=== PATIENT | female | born 1990 | race Caucasian/White ===

== ENCOUNTER 2016-11-29 15:19 | Inpatient (IN) ==
[2016-11-29] MEDS ORDERED: 0.9 % Sodium Chloride 1,000 ML IVC ONE (16:21)
[2016-11-29] MEDS ORDERED: Piperacillin/Tazobactam 3.375 GM in D5% in Water (Mini-Bag+) 100 ML IVPB ONE (16:22)
--- NOTE | 2016-11-29 16:33 | Emergency Department Note ---
Disposition Clinical Impression: Cellulitis Qualifiers: Site of cellulitis: extremity Site of cellulitis of extremity: lower extremity Laterality: unspecified laterality Qualified Code(s): L03.119 - Cellulitis of unspecified part of limb Anemia Qualifiers: Anemia type: unspecified type Qualified Code(s): D64.9 - Anemia, unspecified Disposition: Admitted As Inpatient Referrals: Magdalene Erickson MD [Primary Care Provider] - Forms: ED Satisfaction Letter Time of Disposition: 17:33 General Adult HPI - General Chief complaint: ED Extremity Problem,Nontraumatic Stated complaint: bilat LE infection-from Time Seen by Provider: 11/29/16 16:07 Source: patient Limitations: no limitations Nursing Notes Reviewed: Yes Vital Signs Reviewed: Yes - History of Present Illness HPI Narrative: 26-year-old female with significant past medical history Prader-Willi syndrome presenting to the emergency department after being transferred from urgent care for bilateral lower extremity cellulitis. Patient denies any fever, nausea, vomiting. Patient states no other pains at this time. Approximately 3 weeks ago patient wore shoes that were too tight for her ankles and got abrasion on her right lower extremity. This has had sloughing of skin and redness and irritation to the area. The left lower extremity has a large 12 x 10 cm draining foul-smelling open wound that has been present on and off for months according to the mother. Patient has a history of picking at her skin and this is the reasoning why this cellulitis has gotten significantly worse. Pain Scale: 10 - Related Data Home Medications Medication Instructions Recorded Confirmed No Known Home Drugs 11/29/16 11/29/16 Allergies Allergy/AdvReac Type Severity Reaction Status Date / Time No Known Allergies Allergy Verified 11/29/16 14:23 All systems ED: reviewed and negative except as stated. Constitutional: Denies: fever, chills, weakness Eyes: Reports: as per HPI ENT ED: Reports: as per HPI Cardiovascular: Denies: chest pain, palpitations Respiratory: Denies: cough, dyspnea, wheezes Gastrointestinal: Denies: abdominal pain, nausea, vomiting, diarrhea Genitourinary: Reports: as per HPI Musculoskeletal: Reports: as per HPI Integumentary: Reports: other (Cellulitis bilateral lower extremities) Neurological: Reports: as per HPI Psychiatric: Reports: as per HPI Endocrine: Reports: as per HPI Hematological/Lymphatic: Reports: as per HPI Allergic/Immunologic: Reports: as per HPI Past Medical History - Past Medical History Attestation: Yes The following information was validated with the patient. Medical history: Reports: other Psychiatric history: Reports: no psych history - Social History Smoking Status: Never smoker Smokeless Tobacco Status: No Alcohol use: Reports: none Drug use: Reports: none Physical Exam - General Limitations: no limitations General appearance: alert, in no apparent distress - Head Head exam: atraumatic, normocephalic, normal inspection - Chest Chest inspection: Present: normal inspection, symmetric chest wall rise. Absent : tenderness - Respiratory Respiratory exam: Present: normal lung sounds bilaterally. Absent: respiratory distress, wheezes, stridor - Cardiovascular Cardiovascular exam: Present: regular rate, normal rhythm, normal heart sounds - Abdominal Exam Abdominal exam: Present: soft, Non-Tender. Absent: distention, guarding, rebound - Extremities Exam Extremities exam: Present: full ROM - Neurological Exam Neurological exam: Present: alert, oriented X3 - Psychiatric Psychiatric exam: Present: normal affect, normal mood - Skin Skin exam: Present: other (Bilateral lower extremity cellulitis noted. The right lower extremity with redness and tenderness around the ankle but is not draining and no crepitus is noted. Left lower extremity has a 12 x 10 cm actively draining lesion with foul-smelling discharge coming from it. Severe tenderness and redness around the area. No crepitus noted.) Course Course Narrative: 26-year-old female presenting to the emergency department with chief complaint of bilateral lower extremity cellulitis. Due to the severe nature of the left lower extremity and possible need for debridement R disposition will be most likely admission. We will obtain basic lab work including blood cultures. We will begin treating with IV antibiotics and do a fluid bolus at this time. Patient stable in the room with stable vital signs at this time. Mother at bedside. - Reevaluation(s) Reevaluation #1: Lab work shows a white blood cell count of 13.4 and a lactic acid within normal limits at 1. The patient now currently meeting criteria for sepsis. Hemoglobin noted to be 7.1 on CBC. Patient has no other previous labs to compare this level with. Mother states she is not aware of any history of anemia. Patient has no active bleeding at this time. Patient alert and oriented in the room with stable vital signs at this time. Hospitalist Dr. Leyva accepts the patient. Time: 17:32 Vital Signs Temperature 98.1 F 11/29/16 15:20 Pulse Rate 99 11/29/16 15:20 Respiratory Rate 16 11/29/16 15:20 Blood Pressure 145/80 11/29/16 15:20 O2 Sat by Pulse Oximetry 98 11/29/16 15:20 Temperature 98.1 F 11/29/16 15:20 Pulse Rate 99 11/29/16 15:20 Respiratory Rate 16 11/29/16 15:20 Blood Pressure 145/80 11/29/16 15:20 O2 Sat by Pulse Oximetry 98 11/29/16 15:20 Oxygen Delivery Oxygen Delivery Room Air Medical Decision Making - Lab Data Result diagrams: 11/29/16 16:55 11/29/16 16:55 Lab Results 11/29/16 11/29/16 11/29/16 Range/Units 16:55 16:55 16:55 WBC 13.4 H (4.3-11.1) K/mcL RBC 4.27 (3.82-4.97) M/mcL Hgb 7.1 L (11.5-15.4) g/dL Hct 28.3 L (35.3-44.9) % MCV 66.3 L (83.0-100.0) fL MCH 16.6 L (28.0-33.3) pg MCHC 25.1 L (31.6-35.5) g/dL RDW 22.9 H (11.5-14.5) % Plt Count 376 (140-400) K/mcL MPV 9.8 (9.4-12.4) fL Nucleated RBCs/100 WBC 0.1 H (0) /100 WBC Sodium 140 (136-145) mEq/L Potassium 3.9 (3.5-4.5) mEq/L Chloride 106 (98-109) mEq/L Carbon Dioxide 25 (19-29) mEq/L BUN 14 (7-20) mg/dL Creatinine 0.65 (0.57-1.11) mg/dL Est GFR ( Amer) > 60 (> 60) Est GFR (Non-Af Amer) > 60 (> 60) BUN/Creatinine Ratio 22 (6-26) Glucose 102 H (70-99) mg/dL Calculated Osmolality 291 (280-300) Lactic Acid 1.1 (0.5-2.2) mmol/L Calcium 8.7 (8.6-10.8) mg/dL
[2016-11-29] MEDS ORDERED: Ampicillin/Sulbactam 3,000 MG in 0.9 % Sodium Chloride Mini Bag 100 ML IVPB ONE (16:44)
[2016-11-29] MEDS ORDERED: Vancomycin 2,000 MG in D5% in Water 500 ML IVPB ONE (17:00)
[2016-11-29 17:08] LABS: Basophils # 0.1 K/mcL (0.0-0.2); Basophils % 0.4 %; Eosinophils # 0.3 K/mcL (0.0-0.6); Eosinophils % 2.2 %; Hematocrit 28.3 % (35.3-44.9); Immature Granulocytes % 0.4 % (0-4); Lymphocytes % 14.8 %; Mean Corpuscular HGB Conc 25.1 g/dL (31.6-35.5); Mean Corpuscular Hemoglobin 16.6 pg (28.0-33.3); Mean Corpuscular Volume 66.3 fL (83.0-100.0); Mean Platelet Volume 9.8 fL (9.4-12.4); Monocytes % 7.6 %; Nucleated Red Blood Cells 0.1 /100 WBC (0); Platelet Count 376 K/mcL (140-400); Red Blood Count 4.27 M/mcL (3.82-4.97); Red Cell Distribution Width 22.9 % (11.5-14.5); Segmented Neutrophils % 74.6 %
[2016-11-29 17:15] LABS: BUN/Creatinine Ratio 22 (6-26); Blood Urea Nitrogen 14 mg/dL (7-20); Calcium 8.7 mg/dL (8.6-10.8); Carbon Dioxide 25 mEq/L (19-29); Chloride 106 mEq/L (98-109); Glucose 102 mg/dL (70-99); Osmolality,Calculated 291 (280-300); Potassium 3.9 mEq/L (3.5-4.5); Sodium 140 mEq/L (136-145); eGFR For African Americans > 60 (> 60); eGFR For Non-African Americans > 60 (> 60)
--- NOTE | 2016-11-29 17:16 | Emergency Department Note ---
START Narrative - START START: I examined this patient and my medical decision-making was reviewed with the Resident Physician. I agree with the documented findings, disposition and treatment plan as described except to the extent set forth below. Bilateral lower extremity wounds and ulcerations with surrounding erythema which could be related to an early cellulitis. The left lower extremity appears severely infected. I feel she would benefit from IV antibiotics and admission and a general surgery consult for wound debridement.
[2016-11-29 17:22] LABS: Hemoglobin 7.1 g/dL (11.5-15.4)
[2016-11-29 17:35] LABS: Anisocytosis 1+ (Not Present); Hypochromasia Present (Not Present); Microcytosis Present (Not Present); Platelet Estimate Normal (Normal)
[2016-11-29 17:36] LABS: Polychromasia 1+ (Not Present)
[2016-11-29] MEDS ORDERED: Naloxone 0.4 MG/ML INJ IVP PRN ×2 (18:11→18:17)
[2016-11-29] MEDS ORDERED: Ibuprofen 400 MG TABLET PO PRN (18:11)
--- NOTE | 2016-11-29 18:43 | Internal Med History&Physical ---
<Sidney Bauer - Last Filed: 11/29/16 19:54> Date of Encounter: 11/29/16 Time of Encounter: 18:40 Assessment and Plan (1) Cellulitis of both lower extremities Current visit: Yes Status: Chronic Chronic cellulitis of bilateral lower extremities. Patient mother at bedside and reports that she has a large left lower extremity wound that is increasing in size. The wound is open and has foul-smelling serous drainage. It appears the wound will require surgical debridement. The family is at bedside and actively talking with Dr. Ramos on the cell phone and they are informing me that she has agreed to see the patient for debridement. The patient meets SIRS criteria but she does not appear toxic. Blood cultures ordered and have been obtained; in the emergency department she was treated with ampicillin, Zosyn and vancomycin 2 g. I will treat patient with vancomycin; pharmacy to dose starting tomorrow, additionally I will add Zosyn every 8 hours. 0.9% normal saline at 125ml/hr Obtain EKG surgical clearance (2) Sepsis Current visit: Yes Status: Acute The patient has leukocytosis and tachycardia in the presence of bilateral lower extremity cellulitis left lower extremity wound, process such as not appear toxic. We will start sepsis protocol see plan above. Qualifiers: Qualified Code(s): A41.9 - Sepsis, unspecified organism (3) Diabetes Current visit: Yes Status: Acute History of type 2 diabetes. Not taking any medications at home or controlled. Continue to monitor blood glucose before meals and at bedtime Accu-Cheks. 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 Mother denies any prior history, also denies any obvious source of bleeding. No hematemesis, hematochezia or hematuria. No obvious bleeding noted. Type and screen CBC in the morning Qualifiers: Anemia type: unspecified type Qualified Code(s): D64.9 - Anemia, unspecified (5) DVT prophylaxis Current visit: Yes Status: Acute Heparin subcutaneous 5000u SC every 12 hours, morning dose as the patient is going to ER tomorrow for debridement of left lower extremity wound. Internal Medicine - H&P: HPI Chief complaint: Bilateral lower extremity cellulitis Admitted From: Home Plans for Post Hospital Care: Home History of present illness: Ms. Bella is a 26 year old female with a PMH of diabetes and Prader-Willi with mental developmental delay who presents to [facility] today with a greater than 3 month history of bilateral lower extremity cellulitis. The patients mother is at bedside and assists with history and physical. Patient's mother reports that she has had multiple lower extremity wounds and cellulitis off and on since she was 8 years old. She reports that the patient is constantly picking at her wound of the beginning to heal on examination the patient is noted to have a large 12 x 10 cm draining foul-smelling open wound to the left lower extremity. Right lower extremity has cellulitis is erythematous and tender. The patient has a mildly elevated white count of 13.4 and a pulse of 96 which meets SIRS criteria. Of Additional note the patient is also presenting with anemia, her mother denies any obvious source of bleeding also denying hematemesis, hematochezia and hematuria. She will likely need surgical debridement. The patient's family's request and Dr. Ramos to the surgical debridement, while in the room family members or in discussions with Dr. Ramos and per family she has agreed to see. Past Med Surg Social Fam HX - Past Medical History Medical history: other Psychiatric history: no psych history - Social History Smoking Status: Never smoker Smokeless Tobacco Status: No Alcohol use: none Drug use: none - Family History Mother Living Status: Still Living Hx Family Cancer: Yes Father Hx Family Endocrine Disorder: Yes (Diabetes) Grandmother Hx Family Cardiac Disorders: Yes (CAD) Internal Medicine - H&P: Meds No Known Home Drugs 11/29/16 [History] 3 Allergy/AdvReac Type Severity Reaction Status Date / Time No Known Allergies Allergy Verified 11/29/16 14:23 All Systems PM: A 10-system review of systems was performed and is negative for pertinent findings except as documented above in the HPI. - Constitutional Constitutional: fatigue, weakness, no chills, no fever(s), no night sweats - EENT Eyes: no change in vision, no discharge, no pain, no photophobia Ears: no ear discharge, no ear pain, no tinnitus Nose, mouth and throat: no dysphagia, no nasal discharge, no neck pain, no sore throat - Cardiovascular Cardiovascular ROS IM: no chest pain, no diaphoresis, no dyspnea, no lightheadedness, no palpitations, no syncope - Respiratory Respiratory: no cough, no dyspnea, no wheezing, no excessive phlegm production - Gastrointestinal Gastrointestinal: no abdominal pain, no diarrhea, no hematemesis, no hematochezia, no melena, no nausea, no vomiting - Genitourinary Genitourinary: no change in urinary stream, no dysuria, no flank pain, no hematuria - Musculoskeletal Musculoskeletal ROS IM: other, no numbness, no tingling Additional comments: Bilateral lower extremity cellulitis, left lower extremity has a large open wound - Integumentary Integumentary IM: no rash, no unusual bruising - Neurological Neurological ROS: no confusion, no convulsions, no focal weakness, no numbness, no tingling, no tremor(s) - Hematologic/Lymphatic Hematologic/Lymphatic: no easy bruising - Constitutional Vitals: Temp Pulse Resp BP Pulse Ox 98.1 F 99 16 145/80 98 11/29/16 15:20 11/29/16 15:20 11/29/16 15:20 11/29/16 15:20 11/29/16 15:20 General appearance: Present: cooperative, A&O X 3, no acute distress, answers questions appropriately - Head Head exam: Present: atraumatic, normocephalic - Eye Eye exam: Present: EOMI, PERRL, conjuntiva pink, sclera anicteric Pupils: Present: PERRL - Neck Neck exam general surgery: Present: supple, trachea midline. Absent: lymphadenopathy - Respiratory Respiratory exam: Present: CTAB. Absent: accessory muscle use, rales, rhonchi, wheezes - Cardiovascular Cardiovascular exam: Present: RRR, +S1, +S2. Absent: diastolic murmur, gallop, rubs, systolic murmur - GI/Abdominal GI/Abdominal exam: Present: normal bowel sounds, soft, no peritoneal signs. Absent: distended, tenderness - Extremities Exam Extremities exam: Present: calf tenderness, normal capillary refill, pedal edema , tenderness, warm. Absent: cyanotic, normal inspection, radial pulses palpable and symmetrical - Expanded Lower Extremities Exam Lower Leg exam: Present: erythema, swelling, tenderness Ankle exam: Present: swelling, tenderness (Bilateral lower extremity cellulitis , left lower extremity large 12 x 10 cm foul-smelling draining open wound) 1 - 12 x 10 cm open wound with foul-smelling drainage, erythema and edema tender to palpation 2 - Erythema and edema, tender to palpation - Neurological Exam Neurological exam: Present: alert, CN II-XII intact, oriented X3, no focal deficits. Absent: pronater drift, facial droop, speech deficit - Skin Skin exam: Present: dry, intact Internal Med - H&P Results - Labs CBC & Chem 7: 11/29/16 16:55 11/29/16 16:55 <Trey Yao - Last Filed: 11/29/16 23:32> Date of Encounter: 11/29/16 Time of Encounter: 21:00 - Constitutional Vitals: Temp Pulse Resp BP Pulse Ox 98.4 F 95 20 123/78 95 11/29/16 19:56 11/29/16 19:56 11/29/16 19:56 11/29/16 19:56 11/29/16 19:56 General appearance: Present: A&O X 3, no acute distress - Eye Eye exam: Present: PERRL. Absent: scleral icterus - Respiratory Respiratory exam: Present: CTAB. Absent: rales, rhonchi, wheezes - GI/Abdominal GI/Abdominal exam: Present: soft. Absent: tenderness - Extremities Exam Extremities exam: Present: normal capillary refill, warm Additional comments: bilateral cellulitis of LE with draining lesion on left leg as noted per Sidney Bauer CNP. - Neurological Exam Neurological exam: Present: alert, CN II-XII intact, oriented X3, no focal deficits - Psychiatric Psychiatric exam: Present: normal affect, normal mood - Skin Skin exam: Present: dry, warm Internal Med - H&P Results - Labs CBC & Chem 7: 11/29/16 16:55 11/29/16 16:55 - Attending Attestation I discussed the patient [facility] [place], PMH, ROS, lab data, and exam findings with Sidney Bauer CNP. I then saw and examined patient independently as well. Patient picks at her skin chronically and tends to develop recurrent cellulitis. She now has developed an extensive cellulitis of her LLE with draining wound. She may need surgical debridement as well. Regarding her anemia, she has no history of blood loss according to mother. She does not menstruate and never has. We will check iron studies and monitor hemoglobin levels. She will likely need PRBC transfusion. She will also need endoscopy in the near future, likely outpatient unless she develops acute bleed. Other than my comments above and noted exam findings, I agree with Sidney's assessment and plan.
[2016-11-29 20:51] LABS: % Iron Saturation 4 % (15-50); Iron 12 mcg/dL (50-170); Transferrin 244 mg/dL (180-382)
[2016-11-29] MEDS: *HR* Heparin 5,000 UNIT/ML VIAL SQ SCH (21:22)
[2016-11-29] MEDS: *HR* HYDROcodone/Acet 5/325 mg TABLET PO PRN (21:23)
[2016-11-30] MEDS: Piperacillin/Tazobactam 3.375 GM in D5% in Water (Mini-Bag+) 100 ML IVPB SCH ×4 (01:31→23:54)
[2016-11-30] MEDS: *HR* HYDROcodone/Acet 5/325 mg TABLET PO PRN (01:37)
[2016-11-30] MEDS: 0.9 % Sodium Chloride 1,000 ML IVC SCH ×2 (04:09→20:50)
[2016-11-30 05:05] LABS: Immature Granulocytes % 0.4 % (0-4); Red Blood Count 4.12 M/mcL (3.82-4.97)
[2016-11-30 05:06] LABS: Basophils % 0.4 %; Eosinophils # 0.3 K/mcL (0.0-0.6); Eosinophils % 2.8 %; Hematocrit 27.3 % (35.3-44.9); Hemoglobin 6.7 g/dL (11.5-15.4); Lymphocytes # 2.1 K/mcL (0.6-4.6); Lymphocytes % 20.8 %; Mean Corpuscular HGB Conc 24.5 g/dL (31.6-35.5); Mean Corpuscular Hemoglobin 16.3 pg (28.0-33.3); Mean Corpuscular Volume 66.3 fL (83.0-100.0); Monocytes # 0.8 K/mcL (0.0-1.3); Monocytes % 8.5 %; Neutrophils # 6.6 K/mcL (1.6-8.9); Platelet Count 367 K/mcL (140-400); Red Cell Distribution Width 22.7 % (11.5-14.5); Segmented Neutrophils % 67.1 %
[2016-11-30 05:20] LABS: Alanine Aminotransferase 7 Units/L (0-55); Albumin 2.7 g/dL (3.5-5.0); Albumin/Globulin Ratio 0.6 (1.1-2.2); Alkaline Phosphatase 59 Units/L (38-126); Aspartate Amino Transferase 10 Units/L (5-34); BUN/Creatinine Ratio 22 (6-26); Bilirubin,Total 0.3 mg/dL (0.2-1.2); Blood Urea Nitrogen 14 mg/dL (7-20); Calcium 8.4 mg/dL (8.6-10.8); Carbon Dioxide 27 mEq/L (19-29); Chloride 106 mEq/L (98-109); Globulin 4.4 g/dL (2.4-3.5); Glucose 124 mg/dL (70-99); Osmolality,Calculated 292 (280-300); Potassium 4.1 mEq/L (3.5-4.5); Sodium 140 mEq/L (136-145); Total Protein 7.1 g/dL (6.0-8.3); eGFR For African Americans > 60 (> 60); eGFR For Non-African Americans > 60 (> 60)
[2016-11-30 05:30] LABS: Anisocytosis 3+ (Not Present); Hypochromasia Present (Not Present); Microcytosis Present (Not Present); Platelet Estimate Normal (Normal); Polychromasia 1+ (Not Present)
[2016-11-30] MEDS: *HR* Heparin 5,000 UNIT/ML VIAL SQ SCH ×2 (06:06→18:45)
[2016-11-30] MEDS ORDERED: 0.9 % Sodium Chloride 250 ML ONE (07:40)
[2016-11-30] MEDS ORDERED: Sodium Ferric Gluconat/Sucrose 250 MG in 0.9 % Sodium Chloride 100 ML IVPB ONE (08:01)
[2016-11-30] MEDS ORDERED: Vancomycin 2,000 MG in D5% in Water 500 ML IVPB SCH (11:00)
--- NOTE | 2016-11-30 13:16 | Internal Med Progress Note ---
Date of Encounter: 11/30/16 Time of Encounter: 09:40 - Assessment and plan (1) Cellulitis Current Visit: Yes Status: Acute Assessment and plan: Patient with bilateral cellulitis open wound on left leg. Surgery consulted. Continue current antibiotics. Clinically patient is getting better. Moderate risk for complications. Qualifiers: Site of cellulitis: extremity Site of cellulitis of extremity: lower extremity Laterality: left Qualified Code(s): L03.116 - Cellulitis of left lower limb (2) Anemia Current Visit: Yes Status: Acute Assessment and plan: Hemoglobin 6.7 today. Discussed with patient and her brother. Patient does have a very restricted diet. Most likely has dietary iron deficiency. Will transfuse 1 unit packed red blood cells. Also give IV iron. Follow blood counts. We will also check stool for occult blood. Qualifiers: Anemia type: iron deficiency Iron deficiency anemia type: inadequate dietary iron intake Qualified Code(s): D50.8 - Other iron deficiency anemias (3) Sepsis Current Visit: Yes Status: Acute Assessment and plan: Improving. Lactate normal. Heart rate normal. No new episodes of fever. Cultures negative so far. Qualifiers: Sepsis type: sepsis due to unspecified organism Qualified Code(s): A41.9 - Sepsis, unspecified organism (4) Diabetes Current Visit: Yes Status: Chronic Assessment and plan: Controlled. Continue to monitor blood sugars. Will place on low correctional insulin coverage. 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 Lying in bed. Comfortable. No new complaints at this time. No fever or chills reported. - Constitutional Vitals: Temp Pulse Resp BP Pulse Ox 98.4 F 77 18 98/61 99 11/30/16 11:13 11/30/16 11:13 11/30/16 11:13 11/30/16 11:13 11/30/16 11:13 General appearance: Present: A&O X 3, morbidly obese, no acute distress, answers questions appropriately - Neck Neck exam general surgery: Present: supple, trachea midline. Absent: lymphadenopathy - Respiratory Respiratory exam: Present: CTAB. Absent: accessory muscle use, rales, rhonchi, wheezes - Cardiovascular Cardiovascular exam: Present: RRR, +S1, +S2. Absent: diastolic murmur, gallop, rubs, systolic murmur - GI/Abdominal GI/Abdominal exam: Present: normal bowel sounds, soft, no peritoneal signs. Absent: distended, tenderness - Extremities Exam Extremities exam: Present: pedal edema, warm, radial pulses palpable and symmetrical. Absent: calf tenderness, cyanotic Additional comments: Erythema involving both lower extremities. Currently bandaged. Open wound on left leg remains stable. - Neurological Exam Neurological exam: Present: alert, oriented X3, no focal deficits. Absent: facial droop, speech deficit Internal Medicine: Result - Labs CBC & Chem 7: 11/30/16 04:23 11/30/16 04:23 Labs: Short CBC 11/30/16 Range/Units 04:23 WBC 9.9 (4.3-11.1) K/mcL Hgb 6.7 L (11.5-15.4) g/dL Hct 27.3 L (35.3-44.9) % Plt Count 367 (140-400) K/mcL Neutrophils # 6.6 (1.6-8.9) K/mcL BMP 11/30/16 04:23 Sodium 140 Potassium 4.1 Chloride 106 Carbon Dioxide 27 BUN 14 Creatinine 0.63 Glucose 124 H Calcium 8.4 L Liver Function 11/30/16 Range/Units 04:23 Total Bilirubin 0.3 (0.2-1.2) mg/dL AST 10 (5-34) Units/L ALT 7 (0-55) Units/L Alkaline Phosphatase 59 (38-126) Units/L Albumin 2.7 L (3.5-5.0) g/dL Consult Discharge Plan - Plan Referrals: Magdalene Erickson MD [Primary Care Provider] -
--- NOTE | 2016-11-30 13:22 | Electrocardiograph Report ---
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
[2016-11-30] MEDS ORDERED: Dextrose Gel 15 GM PO PRN ×2 (13:25)
[2016-11-30] MEDS ORDERED: *HR* Dextrose 50 % in Water (Syg) 50 ML SYRINGE IVP PRN (13:25)
[2016-11-30] MEDS ORDERED: D5% in Water 1,000 ML IVC PRN (13:25)
--- NOTE | 2016-11-30 14:55 | General Surgery Consult Note ---
<Coretta Montero Anoop - Last Filed: 11/30/16 15:49> Date of Encounter: 11/30/16 Time of Encounter: 14:15 Assessment and Plan (1) Venous stasis ulcers of both lower extremities Current Visit: Yes Status: Chronic Local debridement of LLE- see procedure note Cultures of LLE wound Wound care- cleanse with soap and water, apply gauze moistened with 1/4 strength Dakin's solution, cover with ABD pad, wrap with kerlex and then wrap with mauricio wrap. Complete dressing changes daily IV antibiotics- Zosyn and Vancomycin Supportive care Will need outpatient follow-up in wound care in 1 week- will need placement of unna boots bilateral when wounds cleaned up Will continue to follow and assess progress (2) Anemia Current Visit: Yes Status: Acute Discussed with patient and family and they would like to consider EGD/ Colonoscopy on an outpatient basis PRBC tranfused today per medicine team- 1 unit Monitor Hgb/Hct per medicine recommendations Qualifiers: Anemia type: iron deficiency Iron deficiency anemia type: inadequate dietary iron intake Qualified Code(s): D50.8 - Other iron deficiency anemias (3) Cellulitis Current Visit: Yes Status: Chronic IV antibiotics- Zosyn and Vancomycin Qualifiers: Site of cellulitis: extremity Site of cellulitis of extremity: lower extremity Laterality: left Qualified Code(s): L03.116 - Cellulitis of left lower limb (4) Prader-Willi syndrome Current Visit: Yes Status: Chronic (5) Morbid obesity with BMI of 50.0-59.9, adult Current Visit: Yes Status: Chronic (6) Diabetes Current Visit: Yes Status: Chronic Blood glucose controlled Diabetic diet Management per medicine service Qualifiers: Diabetes mellitus type: type 2 Diabetes mellitus complication status: without complication Diabetes mellitus computer terminal operator insulin use: without fpc use Qualified Code(s): E11.9 - Type 2 diabetes mellitus without complications History of Present Illness Consult date: 11/30/16 Reason for consult: other (Bilateral lower extremity wounds and cellulitis; anemia) Requesting physician: Katia Polanco History of present illness: Ms. Bella is a very pleasant 26 year old female with a past medical history significant for Prader Willi Syndrome. She reported to the ED yesterday with complaints of chronic wounds to bilateral lower extremities for the past 3 months. Her mother provides much of the history and medical record has been reviewed. The patient has had multiple wounds/cellulitis to bilateral lower extremities since the age of 89 year old. She has a large wound to her left lower extremity which has been increasing in size. There is foul smelling green drainage noted from the wound. The patient denies any pain associated with her lower extremities at this time. Denies any fevers/chills. She did have an elevated WBC count at 13.4 on admission and has now normalized on day #1. The patient's mother has been caring for her wounds at home. Applying ointment and dry dressing daily. She is not being seen in a wound care center currently. The patient also presents with anemia with a Hgb of 6.7 today. Denies any melena or hematochezia. Denies any nausea/vomiting (hematemesis of coffee ground emesis). Denies any abdominal pain. Denies any unexplained weight loss. Denies any changes in bowel habits. Denies any dizziness or syncopal episodes. Denies any shortness of breath or chest pains. We have been asked to see and evaluate the patient for recommendations. Past Med Surg Social Fam HX - Past Medical History Source: patient, obtained from family Medical history: other (Prader Willi Syndrome, Chronic venous stasis ulcer of lower extremities with cellulitis, obesity) Psychiatric history: no psych history - Past Surgical History Surgical History: appendectomy, other (Partial cecectomy; Tonsillectomy with adenoidectomy; eye surgery as an infant) - Social History Smoking Status: Never smoker Smokeless Tobacco Status: No Alcohol use: none Drug use: none Occupational status: disabled Current living situation: Home - Independent, With Family - Family History Mother Living Status: Still Living Hx Family Cancer: Yes (cervical cancer) Father Hx Family Endocrine Disorder: Yes (Diabetes) Grandmother Hx Family Cardiac Disorders: Yes (CAD) Hx Family Cancer: Yes (MGM- uterine cancer and breast cancer) Medications and Allergies No Known Home Drugs 11/29/16 [History] 3 Allergy/AdvReac Type Severity Reaction Status Date / Time No Known Allergies Allergy Verified 11/29/16 14:23 Review of Systems All systems PM: reviewed and no additional remarkable complaints except as stated (in the HPI) All systems PM: A 10-system review of systems was performed and is negative for pertinent findings except as documented above in the HPI. General Surgery Exam Initial Vital Signs Temp Pulse Resp BP Pulse Ox 98.1 F 99 16 145/80 98 11/29/16 15:20 11/29/16 15:20 11/29/16 15:20 11/29/16 15:20 11/29/16 15:20 - General physical appearance well developed, well nourished, no distress, no pain, obese - Eyes normal ocular movement - ENT normal mucosa, atraumatic, normocephalic - Neck trachea midline - Respiratory normal respiratory effort, clear to auscultation - Cardiovascular Cardiovascular exam: Present: RRR - Abdomen Abdomen general surgery: Present: bowel sounds present, soft, non tender - Integumentary Integumentary general surgery: Present: warm and dry, other (LLE wound- measures (10 X 24 X 0.3cm) with 70% granulation tissue, 30% fibrin; mild surrounding erytherma without induration; small amount of green drainage noted with odor; no tunnelling or undermining noted; RLE wound measures (6 X 6 X 0.2cm ); 100% granulation tissue noted; small amount of serous drainage noted without odor; mild surrounding erythema without induration noted; no tunnelling or undermining noted) - Neurologic Present: CN 2-12 grossly intact - Psychiatric Psychiatric general surgery: Present: A&Ox3 Exam Initial Vital Signs Temp Pulse Resp BP Pulse Ox 98.1 F 99 16 145/80 98 11/29/16 15:20 11/29/16 15:20 11/29/16 15:20 11/29/16 15:20 11/29/16 15:20 Results - Labs 11/30/16 04:23 11/30/16 04:23 Abnormal lab results Hgb 6.7 g/dL (11.5-15.4) L 11/30/16 04:23 Hct 27.3 % (35.3-44.9) L 11/30/16 04:23 MCV 66.3 fL (83.0-100.0) L 11/30/16 04:23 MCH 16.3 pg (28.0-33.3) L 11/30/16 04:23 MCHC 24.5 g/dL (31.6-35.5) L 11/30/16 04:23 RDW 22.7 % (11.5-14.5) H 11/30/16 04:23 Nucleated RBCs/100 WBC 0.1 /100 WBC (0) H 11/29/16 16:55 Polychromasia 1+ (Not Present) A 11/30/16 04:23 Hypochromasia Present (Not Present) A 11/30/16 04:23 Anisocytosis 3+ (Not Present) A 11/30/16 04:23 Microcytosis Present (Not Present) A 11/30/16 04:23 Glucose 124 mg/dL (70-99) H 11/30/16 04:23 POC Glucose 130 (58-89) H 11/30/16 11:29 Calcium 8.4 mg/dL (8.6-10.8) L 11/30/16 04:23 Iron 12 mcg/dL (50-170) L 11/29/16 16:55 % Saturation 4 % (15-50) L 11/29/16 16:55 Albumin 2.7 g/dL (3.5-5.0) L 11/30/16 04:23 Globulin 4.4 g/dL (2.4-3.5) H 11/30/16 04:23 Albumin/Globulin Ratio 0.6 (1.1-2.2) L 11/30/16 04:23 Diabetes panel 11/30/16 Range/Units 04:23 Sodium 140 (136-145) mEq/L Potassium 4.1 (3.5-4.5) mEq/L Chloride 106 (98-109) mEq/L Carbon Dioxide 27 (19-29) mEq/L BUN 14 (7-20) mg/dL Creatinine 0.63 (0.57-1.11) mg/dL Glucose 124 H (70-99) mg/dL Calcium 8.4 L (8.6-10.8) mg/dL AST 10 (5-34) Units/L ALT 7 (0-55) Units/L Alkaline Phosphatase 59 (38-126) Units/L Albumin 2.7 L (3.5-5.0) g/dL Calcium panel 11/30/16 Range/Units 04:23 Calcium 8.4 L (8.6-10.8) mg/dL Albumin 2.7 L (3.5-5.0) g/dL Pituitary panel 11/30/16 Range/Units 04:23 Sodium 140 (136-145) mEq/L Potassium 4.1 (3.5-4.5) mEq/L Chloride 106 (98-109) mEq/L Carbon Dioxide 27 (19-29) mEq/L BUN 14 (7-20) mg/dL Creatinine 0.63 (0.57-1.11) mg/dL Glucose 124 H (70-99) mg/dL Calcium 8.4 L (8.6-10.8) mg/dL Adrenal panel 11/30/16 Range/Units 04:23 Sodium 140 (136-145) mEq/L Potassium 4.1 (3.5-4.5) mEq/L Chloride 106 (98-109) mEq/L Carbon Dioxide 27 (19-29) mEq/L BUN 14 (7-20) mg/dL Creatinine 0.63 (0.57-1.11) mg/dL Glucose 124 H (70-99) mg/dL Calcium 8.4 L (8.6-10.8) mg/dL Total Bilirubin 0.3 (0.2-1.2) mg/dL AST 10 (5-34) Units/L ALT 7 (0-55) Units/L Alkaline Phosphatase 59 (38-126) Units/L Albumin 2.7 L (3.5-5.0) g/dL All other labs normal. Consult Discharge Plan - Plan Referrals: Magdalene Erickson MD [Primary Care Provider] - - Attending Attestation For this encounter, I have reviewed the FURNACE COOLER or PA documentation, treatment plan, and medical decision making; and I have had face to face time with this patient. <Jennifer Ramos - Last Filed: 12/01/16 12:36> Date of Encounter: 11/30/16 Assessment and Plan (1) Anemia Current Visit: Yes Status: Acute will plan bowel prep tomorrow and EGD/colonscopy on wed Qualifiers: Anemia type: unspecified type Qualified Code(s): D64.9 - Anemia, unspecified (2) DVT prophylaxis Current Visit: Yes Status: Acute (3) Cellulitis Current Visit: Yes Status: Chronic continue Abx Qualifiers: Site of cellulitis: extremity Site of cellulitis of extremity: lower extremity Laterality: left Qualified Code(s): L03.116 - Cellulitis of left lower limb (4) Morbid obesity with BMI of 50.0-59.9, adult Current Visit: Yes Status: Chronic (5) Prader-Willi syndrome Current Visit: Yes Status: Chronic ok for regular diet tonight, start clears in am (6) Venous stasis ulcers of both lower extremities Current Visit: Yes Status: Chronic agree with Kiara Montero assessment and plan History of Present Illness History of present illness: Patient is 26 yo morbidly obese female with Prader-willi syndrome, MR who has had bilateral lower leg wounds on and off since she was 8 yrs old. She has sensitive skin per her mother and even the act of itching/scratching her legs will cause and open sore. She has had many treatments over the years from Unna boots, lymphedema sleeves, various medicated dressings and kerlix and coban when no open wounds present. She has had a left leg open wound for some times now. There is green foul smelling drainage. She was admitted with cellulitis and elevated wbc and started on Abx. Her Hb was found to be 7.1 on admission. Patient denies any obvious dark/black stools or blood in stool. States she sometimes has epigastric pain &/or reflux. Mother states this is the first time she has heard about this as patient has never previously complained. Past Med Surg Social Fam HX - Past Medical History Medical history: other (Prader Willi Syndrome, Chronic venous stasis ulcer of lower extremities with cellulitis, obesity, MR) Review of Systems All systems PM: reviewed and no additional remarkable complaints except as stated All systems PM: A 10-system review of systems was performed and is negative for pertinent findings except as documented above in the HPI. General Surgery Exam Initial Vital Signs Temp Pulse Resp BP Pulse Ox 98.1 F 99 16 145/80 98 11/29/16 15:20 11/29/16 15:20 11/29/16 15:20 11/29/16 15:20 11/29/16 15:20 - General physical appearance well developed, well nourished, no distress, obese - Eyes PERRL, normal ocular movement - ENT normal mucosa, atraumatic - Neck trachea midline - Respiratory normal expansion, normal respiratory effort - Abdomen Abdomen general surgery: Present: bowel sounds present, soft, non tender - Neurologic Present: CN 2-12 grossly intact - Musculoskeletal Present: normal posture - Psychiatric Psychiatric general surgery: Present: A&Ox3 Exam Initial Vital Signs Temp Pulse Resp BP Pulse Ox 98.1 F 99 16 145/80 98 11/29/16 15:20 11/29/16 15:20 11/29/16 15:20 11/29/16 15:20 11/29/16 15:20 Results - Labs 11/30/16 16:15 11/30/16 04:23 Abnormal lab results Hgb 6.7 g/dL (11.5-15.4) L 11/30/16 16:15 Hct 27.5 % (35.3-44.9) L 11/30/16 16:15 MCV 66.3 fL (83.0-100.0) L 11/30/16 04:23 MCH 16.3 pg (28.0-33.3) L 11/30/16 04:23 MCHC 24.5 g/dL (31.6-35.5) L 11/30/16 04:23 RDW 22.7 % (11.5-14.5) H 11/30/16 04:23 Nucleated RBCs/100 WBC 0.1 /100 WBC (0) H 11/29/16 16:55 Polychromasia 1+ (Not Present) A 11/30/16 04:23 Hypochromasia Present (Not Present) A 11/30/16 04:23 Anisocytosis 3+ (Not Present) A 11/30/16 04:23 Microcytosis Present (Not Present) A 11/30/16 04:23 Glucose 124 mg/dL (70-99) H 11/30/16 04:23 POC Glucose 138 (58-89) H 11/30/16 23:58 Calcium 8.4 mg/dL (8.6-10.8) L 11/30/16 04:23 Iron 12 mcg/dL (50-170) L 11/29/16 16:55 % Saturation 4 % (15-50) L 11/29/16 16:55 Albumin 2.7 g/dL (3.5-5.0) L 11/30/16 04:23 Globulin 4.4 g/dL (2.4-3.5) H 11/30/16 04:23 Albumin/Globulin Ratio 0.6 (1.1-2.2) L 11/30/16 04:23 All other labs normal. - Attending Attestation I have personally performed a face to face evaluation on this patient. I have reviewed and agree with the care plan. History and Exam by me shows:
--- NOTE | 2016-11-30 15:57 | General Surgery Procedure Note ---
Date of procedure: 11/30/16 Pre-op diagnosis: Infected venous stasis ulcer of LLE Post-op diagnosis: same Procedure: After informed consent was obtained and timeout performed, the patient's left lower extremity was localized with the use of 2% topical lidocaine. After achieving appropriate localization, a curet was used to debride the entire wound. Cultures were obtained for Gram stain, aerobic culture, anaerobic culture. The wound was cleansed with 40 mL of sterile saline and patted dry. The wound was debrided through skin and subcutaneous tissue. The patient tolerated this well and there were no immediate complications noted. Complications: none Anesthesia: local (2% topical lidocaine) Surgeon: Coretta Montero Creative Manager: Liliana Bay Estimated blood loss (cc): 0 Pathology: other (gram stain, aerobic culture, anerobic culture) Condition: stable Disposition: no change
[2016-11-30 17:12] LABS: Hematocrit 27.5 % (35.3-44.9); Hemoglobin 6.7 g/dL (11.5-15.4)
[2016-11-30] MEDS ORDERED: Aminoglycoside Consult 1 EACH MC ONE (18:38)
[2016-11-30] MEDS: Insulin LISPRO 300 UNITS/3 ML VIAL SQ SCH ×2 (18:45→23:59)
[2016-12-01] MEDS ORDERED: Vancomycin 2,000 MG in D5% in Water 500 ML IVPB SCH (01:00)
[2016-12-01] MEDS: 0.9 % Sodium Chloride 1,000 ML IVC SCH ×2 (05:39→13:32)
[2016-12-01] MEDS: *HR* Heparin 5,000 UNIT/ML VIAL SQ SCH ×2 (05:40→17:48)
[2016-12-01] MEDS: Insulin LISPRO 300 UNITS/3 ML VIAL SQ SCH ×3 (05:40→16:34)
[2016-12-01] MEDS: Piperacillin/Tazobactam 3.375 GM in D5% in Water (Mini-Bag+) 100 ML IVPB SCH ×2 (07:55→16:36)
[2016-12-01] MEDS ORDERED: Polyethylene Glycol 3350 255 GM POWDER PO ONE (08:22)
--- NOTE | 2016-12-01 13:02 | Internal Med Progress Note ---
Date of Encounter: 12/01/16 Time of Encounter: 09:00 - Assessment and plan (1) Cellulitis Current Visit: Yes Status: Chronic Assessment and plan: Patient with bilateral cellulitis open wound on left leg. Surgery consulted. Pt had debridement done. Continue antibiotic. Wound culture shows Pseudomonas , blood culture negative 2. Will DC Vanco continue Zosyn. Which for final culture result. Qualifiers: Site of cellulitis: extremity Site of cellulitis of extremity: lower extremity Laterality: left Qualified Code(s): L03.116 - Cellulitis of left lower limb (2) Anemia Current Visit: Yes Status: Acute Assessment and plan: Hemoglobin 6.7 today. Discussed with patient and her brother. Patient does have a very restricted diet. Most likely has dietary iron deficiency. Will transfuse 1 unit packed red blood cells. Also give IV iron. Follow blood counts. We will also check stool for occult blood. Surgical consult on case and discussed with patient regarding EGD/colonoscopy, plan for all the scopes as outpatient. Qualifiers: Anemia type: iron deficiency Qualified Code(s): D50.0 - Iron deficiency anemia secondary to blood loss (chronic) (3) Sepsis Current Visit: Yes Status: Acute Assessment and plan: Resolved. Lactate normal. Heart rate normal. No new episodes of fever. WBC Down to normal. Qualifiers: Sepsis type: sepsis due to unspecified organism Qualified Code(s): A41.9 - Sepsis, unspecified organism (4) Diabetes Current Visit: Yes Status: Chronic Assessment and plan: Controlled. Continue to monitor blood sugars. Will place on low correctional insulin coverage. Qualifiers: Diabetes mellitus type: type 2 Diabetes mellitus complication status: without complication Diabetes mellitus ad terminal makeup operator insulin use: without ad terminal makeup operator use Qualified Code(s): E11.9 - Type 2 diabetes mellitus without complications (5) DVT prophylaxis Current Visit: Yes Status: Acute Assessment and plan: With subcutaneous heparin (6) Venous stasis ulcers of both lower extremities Current Visit: Yes Status: Chronic Assessment and plan: Continue antibiotic. Continue wound care as outpatient. Debridement done by surgery. Continue closely monitor patient. (7) Prader-Willi syndrome Current Visit: Yes Status: Chronic (8) Morbid obesity with BMI of 50.0-59.9, adult Current Visit: Yes Status: Chronic - Subjective Interval history: Patient is a 26-year-old female admitted for bilateral lower extremity cellulitis. Past medical history is significant for diabetes, anemia, Prader- Willi syndrome. I saw and examined the patient today. Patient cannot answer questions properly. Vital signs stable. Wound culture result shows Pseudomonas. Will continue Zosyn, discontinue vancomycin. Patient still have low hemoglobin, will give another unit of PRBC transfusion. WBC trended down. Surgical consult and debridement appreciated. - Constitutional Vitals: Temp Pulse Resp BP Pulse Ox 98.2 F 73 15 103/67 95 12/01/16 10:40 12/01/16 10:40 12/01/16 10:40 12/01/16 10:40 12/01/16 10:40 General appearance: Present: A&O X 3, morbidly obese, no acute distress, answers questions appropriately - Head Head exam: Present: atraumatic, normocephalic - Eye Eye exam: Present: PERRL, conjuntiva pink, sclera anicteric Pupils: Present: PERRL - Neck Neck exam general surgery: Present: supple, trachea midline. Absent: lymphadenopathy - Respiratory Respiratory exam: Present: CTAB. Absent: accessory muscle use, rales, rhonchi, wheezes - Cardiovascular Cardiovascular exam: Present: RRR, +S1, +S2. Absent: diastolic murmur, gallop, rubs, systolic murmur - GI/Abdominal GI/Abdominal exam: Present: normal bowel sounds, soft, no peritoneal signs. Absent: distended, tenderness - Extremities Exam Extremities exam: Present: warm, radial pulses palpable and symmetrical. Absent : calf tenderness, cyanotic, pedal edema Additional comments: Bilateral lower extremity wound - Neurological Exam Neurological exam: Present: CN II-XII intact, oriented X3, no focal deficits. Absent: pronater drift, facial droop, speech deficit - Skin Skin exam: Present: dry, intact Internal Medicine: Result - Labs CBC & Chem 7: 11/30/16 16:15 11/30/16 04:23 Labs: Short CBC 11/30/16 Range/Units 16:15 Hgb 6.7 L (11.5-15.4) g/dL Hct 27.5 L (35.3-44.9) % Consult Discharge Plan - Plan Referrals: Magdalene Erickson MD [Primary Care Provider] -
[2016-12-01 13:37] LABS: Basophils % 0.3 %; Hemoglobin 6.4 g/dL (11.5-15.4); Monocytes % 7.9 %
[2016-12-01 13:38] LABS: Eosinophils # 0.4 K/mcL (0.0-0.6); Eosinophils % 4.3 %; Hematocrit 25.7 % (35.3-44.9); Immature Granulocytes % 0.3 % (0-4); Lymphocytes # 1.8 K/mcL (0.6-4.6); Lymphocytes % 20.2 %; Mean Corpuscular HGB Conc 24.9 g/dL (31.6-35.5); Mean Corpuscular Hemoglobin 16.5 pg (28.0-33.3); Mean Corpuscular Volume 66.4 fL (83.0-100.0); Mean Platelet Volume 9.9 fL (9.4-12.4); Monocytes # 0.7 K/mcL (0.0-1.3); Platelet Count 313 K/mcL (140-400); Red Blood Count 3.87 M/mcL (3.82-4.97); Red Cell Distribution Width 22.8 % (11.5-14.5)
[2016-12-01 13:41] LABS: Hypochromasia Present (Not Present); Microcytosis Present (Not Present); Platelet Estimate Normal (Normal)
[2016-12-01] MEDS ORDERED: 0.9 % Sodium Chloride 250 ML ONE (13:59)
--- NOTE | 2016-12-01 19:19 | Anesthesia Evaluation PreOp ---
Date of Encounter: 12/01/16 Time of Encounter: 19:18 - Past History Planned Operation: EGD/ Colonoscopy Cardiac History: Denies any Significant Hx Pulmonary History: Denies Any Significant HX LABOR DELIVERY SPECIALIST History: Denies Any Significant HX Other Medical History: Diabetes Type II, Other (Pradder-Willi Syndrome, Morbid Obesity - BMI 56.2, Cellulitis Bilateral lower extremities) Anesthesia History: Past Anesthesia (appendectomy,Partial cecectomy, T&A, eye surgery as an infant) Alcohol Use: none Drug use: none Medications and Allergies No Known Home Drugs 11/29/16 [History] 3 Allergy/AdvReac Type Severity Reaction Status Date / Time No Known Allergies Allergy Verified 11/29/16 14:23 - Meds/Allergy Pre-op Review Medications Reviewed: Yes Allergies Reviewed: Yes Beta Blockers on Current Med List: No Anesthesia Results - Labs 12/01/16 13:21 11/30/16 04:23 - Imaging EKG: image reviewed (SINUS TACHYCARDIA MODERATE ST DEPRESSION) Anesthesia Exam O2 Sat Weight 143.834 kg O2 Sat by Pulse Oximetry 95 O2 Sat by Pulse Oximetry 94 O2 Sat by Pulse Oximetry 94 O2 Sat by Pulse Oximetry 96 O2 Sat by Pulse Oximetry 95 O2 Sat by Pulse Oximetry 95 O2 Sat by Pulse Oximetry 93 O2 Sat by Pulse Oximetry 93 Vital Signs Temp Pulse Resp BP Pulse Ox 98.1 F 99 16 145/80 98 11/29/16 15:20 11/29/16 15:20 11/29/16 15:20 11/29/16 15:20 11/29/16 15:20 V Vital Signs/O2 Sat, Most Current Temp Pulse Resp BP Pulse Ox 98.4 F 82 17 103/65 95 12/01/16 19:40 12/01/16 19:40 12/01/16 19:40 12/01/16 19:40 12/01/16 19:40 Height: 5'3'' Weight: 317# - HEENT Pupil (Motor): Pupils equal, EOMI Mallampati: III Teeth: Normal Oral Opening: Greater than 3 - LABOR DELIVERY SPECIALIST LOC: Oriented LABOR DELIVERY SPECIALIST Motor: Normal RUE, Normal LUE, Normal RLE, Normal LLE, Normal Face LABOR DELIVERY SPECIALIST Sensory: Normal: RUE, LUE, RLE, LLE, Face - Cardiac Rhythm: Regular Murmur: None JVD: No Carotid Bruit: No - Pulmonary Breath Sounds: bilateral Clear Respiratory Effort: Symmetrical Anesthesia Assess/Plan ASA Score: 4 Modified Trudy Scale for Level of Consciousness: Cooperative, oriented, and tranquil Anesthetic Plan: MAC Autologous Blood: Yes Monitoring Plan: Standard Monitors Recovery Plan: Other Anes Supervising Prov Stmt: Test ordered 12/01/2016
[2016-12-01] MEDS ORDERED: Insulin LISPRO 300 UNITS/3 ML VIAL SQ SCH (21:00)
[2016-12-01] MEDS: *HR* HYDROcodone/Acet 5/325 mg TABLET PO PRN (21:58)
[2016-12-02] MEDS: Piperacillin/Tazobactam 3.375 GM in D5% in Water (Mini-Bag+) 100 ML IVPB SCH ×2 (00:01→07:51)
[2016-12-02] MEDS: 0.9 % Sodium Chloride 1,000 ML IVC SCH (05:26)
[2016-12-02] MEDS: *HR* Heparin 5,000 UNIT/ML VIAL SQ SCH ×2 (05:27→17:50)
[2016-12-02] MEDS: Insulin LISPRO 300 UNITS/3 ML VIAL SQ SCH ×3 (07:47→16:19)
[2016-12-02] MEDS: *HR* HYDROcodone/Acet 5/325 mg TABLET PO PRN (09:24)
--- NOTE | 2016-12-02 12:22 | Internal Med Progress Note ---
Date of Encounter: 12/02/16 Time of Encounter: 10:00 - Assessment and plan (1) Cellulitis Current Visit: Yes Status: Chronic Assessment and plan: Patient with bilateral cellulitis open wound on left leg. Surgery consulted. Pt had debridement done. Continue antibiotic with cefepime per culture and sensitivity. Qualifiers: Site of cellulitis: extremity Site of cellulitis of extremity: lower extremity Laterality: left Qualified Code(s): L03.116 - Cellulitis of left lower limb (2) Anemia Current Visit: Yes Status: Acute Assessment and plan: Hemoglobin 6.7. Pt has low MCV and severe low iron level. Patient does have a very restricted diet. Most likely has dietary iron deficiency. has been transfused 2 unit packed red blood cells. Also give IV iron. Follow blood counts. Surgical consult on case and plan for EGD/colonoscopy today. Qualifiers: Anemia type: iron deficiency Qualified Code(s): D50.0 - Iron deficiency anemia secondary to blood loss (chronic) (3) Sepsis Current Visit: Yes Status: Acute Assessment and plan: Resolved. Lactate normal. Heart rate normal. No new episodes of fever. WBC Down to normal. Qualifiers: Sepsis type: sepsis due to unspecified organism Qualified Code(s): A41.9 - Sepsis, unspecified organism (4) Diabetes Current Visit: Yes Status: Chronic Assessment and plan: Controlled. Continue to monitor blood sugars. Will place on low correctional insulin coverage. Qualifiers: Diabetes mellitus type: type 2 Diabetes mellitus complication status: without complication Diabetes mellitus intermediate frame tender insulin use: without intermediate frame tender use Qualified Code(s): E11.9 - Type 2 diabetes mellitus without complications (5) DVT prophylaxis Current Visit: Yes Status: Acute Assessment and plan: With subcutaneous heparin (6) Venous stasis ulcers of both lower extremities Current Visit: Yes Status: Chronic Assessment and plan: Continue antibiotic. Continue wound care as outpatient. Debridement done by surgery. Continue closely monitor patient. (7) Prader-Willi syndrome Current Visit: Yes Status: Chronic (8) Morbid obesity with BMI of 50.0-59.9, adult Current Visit: Yes Status: Chronic - Time Spent With Patient 25 - 35 minutes - Subjective Interval history: Patient is a 26-year-old female admitted for bilateral lower extremity cellulitis. Past medical history is significant for diabetes, anemia, Prader- Willi syndrome. I saw and examined the patient today. Patient denies pain or discomfort. Vital signs stable. Wound culture result shows Pseudomonas/Group G strep. Switch antibiotic to cefepime per sensitivity. Patient still have low hemoglobin (LAB PENDING today), plan for EGD and colonoscopy today. - Constitutional Vitals: Temp Pulse Resp BP Pulse Ox 97.9 F 71 14 89/55 96 12/02/16 12:00 12/02/16 12:00 12/02/16 12:00 12/02/16 12:00 12/02/16 12:00 General appearance: Present: A&O X 3, morbidly obese, no acute distress, answers questions appropriately - Head Head exam: Present: atraumatic, normocephalic - Eye Eye exam: Present: PERRL, conjuntiva pink, sclera anicteric Pupils: Present: PERRL - Neck Neck exam general surgery: Present: supple, trachea midline. Absent: lymphadenopathy - Respiratory Respiratory exam: Present: CTAB. Absent: accessory muscle use, rales, rhonchi, wheezes - Cardiovascular Cardiovascular exam: Present: RRR, +S1, +S2. Absent: diastolic murmur, gallop, rubs, systolic murmur - GI/Abdominal GI/Abdominal exam: Present: normal bowel sounds, soft, no peritoneal signs. Absent: distended, tenderness - Extremities Exam Extremities exam: Present: warm, radial pulses palpable and symmetrical. Absent : calf tenderness, cyanotic, pedal edema Additional comments: Bilateral leg wound. - Neurological Exam Neurological exam: Present: CN II-XII intact, oriented X3, no focal deficits. Absent: pronater drift, facial droop, speech deficit - Skin Skin exam: Present: dry, intact Internal Medicine: Result - Labs CBC & Chem 7: 12/01/16 13:21 11/30/16 04:23 Labs: Short CBC 12/01/16 Range/Units 13:21 WBC 8.9 (4.3-11.1) K/mcL Hgb 6.4 L (11.5-15.4) g/dL Hct 25.7 L (35.3-44.9) % Plt Count 313 (140-400) K/mcL Neutrophils # 6.0 (1.6-8.9) K/mcL Consult Discharge Plan - Plan Referrals: Magdalene Erickosn MD [Primary Care Provider] -
[2016-12-02] MEDS ORDERED: Lidocaine Jelly 11 ml Syringe TP STA (14:20)
[2016-12-02 14:31] LABS: Basophils # 0.1 K/mcL (0.0-0.2); Basophils % 0.6 %; Eosinophils # 0.4 K/mcL (0.0-0.6); Eosinophils % 5.1 %; Hematocrit 28.1 % (35.3-44.9); Hemoglobin 7.3 g/dL (11.5-15.4); Immature Granulocytes % 0.5 % (0-4); Lymphocytes # 1.5 K/mcL (0.6-4.6); Lymphocytes % 18.1 %; Mean Corpuscular Hemoglobin 17.6 pg (28.0-33.3); Mean Corpuscular Volume 67.7 fL (83.0-100.0); Mean Platelet Volume 9.6 fL (9.4-12.4); Monocytes # 0.6 K/mcL (0.0-1.3); Monocytes % 7.5 %; Neutrophils # 5.8 K/mcL (1.6-8.9); Platelet Count 320 K/mcL (140-400); Red Blood Count 4.15 M/mcL (3.82-4.97); Red Cell Distribution Width 23.8 % (11.5-14.5); Segmented Neutrophils % 68.2 %
[2016-12-02 14:48] LABS: Anisocytosis 2+ (Not Present); Platelet Estimate Normal (Normal)
[2016-12-02 14:49] LABS: Hypochromasia Present (Not Present); Microcytosis Present (Not Present)
[2016-12-02 14:50] LABS: Polychromasia 1+ (Not Present)
[2016-12-02] MEDS ORDERED: Lidocaine -MPF 2% 2 ML VIAL ONE (16:13)
[2016-12-02] MEDS ORDERED: Propofol 500 MG/50 ML INFUS..BTL ONE (16:14)
[2016-12-02] MEDS ORDERED: *HR* Propofol 200 MG/20 ML VIAL IVP ONE (17:01)
--- NOTE | 2016-12-02 17:16 | General Surgery Progress Note ---
Date of Encounter: 12/01/16 Time of Encounter: 20:00 - Assessment and Plan (1) Anemia Current Visit: Yes Status: Acute will plan bowel prep today, is tolerating and EGD/colonscopy tomorrow with anesthesia Qualifiers: Anemia type: iron deficiency Qualified Code(s): D50.0 - Iron deficiency anemia secondary to blood loss (chronic) (2) DVT prophylaxis Current Visit: Yes Status: Acute (3) Cellulitis Current Visit: Yes Status: Chronic continue Abx, is improving Qualifiers: Site of cellulitis: extremity Site of cellulitis of extremity: lower extremity Laterality: left Qualified Code(s): L03.116 - Cellulitis of left lower limb (4) Morbid obesity with BMI of 50.0-59.9, adult Current Visit: Yes Status: Chronic (5) Prader-Willi syndrome Current Visit: Yes Status: Chronic continue clears today,npo midnight (6) Venous stasis ulcers of both lower extremities Current Visit: Yes Status: Chronic continue daily dressing changes with 0.25% dakins moistened 4x4 gauze on open wounds, cover with gauze, ABD pad, wrap with kerlix and mauricio wrap (above toes to below knees) change daily, elevate legs when sitting Subjective Patient reports: no new complaints, tolerating liquids well, bowel movement, afebrile Objective Vital Signs - Last 8 Hours Temp Pulse Resp BP Pulse Ox 12/02/16 15:21 98.5 F 72 16 121/80 12/02/16 12:00 97.9 F 71 14 89/55 96 Intake and Output 12/02/16 12/02/16 12/02/16 07:59 15:59 23:59 Intake Total 175 / 175 562 / 562 Output Total 0 / 0 500 / 500 Balance 175 / 175 62 / 62 Intake: IV Fluids 175 / 175 562 / 562 0.9 % Sodium Chloride 1,000 ML 75 / 75 462 / 462 @ 75 mls/hr IVC .[id number] JENELLE Rx #:[id number] Zosyn 3.375 GM In Dextrose 5% ( 100 / 100 100 / 100 Minibag+) 100 ML 100 ML @ 25 mls/hr IVPB Q8HR JENELLE Rx#: [id number] Oral 0 / 0 Output: Urine 0 / 0 500 / 500 Other: Meal NPO Stool Size Small Stool Consistency loose liquid Stool Color Brown Yellow Weight 143.5 kg 143.5 kg Blood Glucose* 119 107 Patient Weight 12/02/16 23:59 Weight 143.5 kg - General physical appearance well developed, well nourished, no distress, obese - Eyes PERRL, normal ocular movement - ENT normal mucosa, normocephalic - Neck Neck exam: trachea midline - Respiratory normal expansion, clear to auscultation - Cardiovascular Cardiovascular exam: Present: RRR - Abdomen Abdomen: Present: bowel sounds present, soft, non tender - Integumentary no rash, no growths, other (large left lower leg wound 50% granulation, 50% fibrin, decreased erythema at periwound, serosang drainage, no foul smell; small right lower leg wound 100% granulation, no surrounding erythema) - Neurologic CN 2-12 grossly intact - Musculoskeletal normal posture - Psychiatric oriented to time, oriented to person, oriented to place, memory intact - Labs 12/02/16 14:15 11/30/16 04:23 Consult Discharge Plan - Plan Referrals: Magdalene Erickson MD [Primary Care Provider] -
--- NOTE | 2016-12-02 17:27 | Discharge Summary ---
Date of Encounter: 12/02/16 Time of Encounter: 17:20 - Discharge Diagnosis (1) Anemia Priority: Secondary Status: Acute Qualifiers: Anemia type: iron deficiency Qualified Code(s): D50.9 - Iron deficiency anemia, unspecified (2) DVT prophylaxis Priority: Secondary Status: Acute (3) Cellulitis Priority: Primary Status: Chronic Qualifiers: Site of cellulitis: extremity Site of cellulitis of extremity: lower extremity Laterality: left Qualified Code(s): L03.116 - Cellulitis of left lower limb (4) Morbid obesity with BMI of 50.0-59.9, adult Priority: Secondary Status: Chronic (5) Prader-Willi syndrome Priority: Secondary Status: Chronic (6) Venous stasis ulcers of both lower extremities Priority: Primary Status: Chronic - Discharge Medications Prescriptions: Omeprazole 20 mg PO DAILY #30 tablet. Sodium Hypochlorite 0.25% [Dakin's (Half-Strength 0.25%)] 473 ml MC DAILY #1 solution Home Medications: Omeprazole 20 mg PO DAILY #30 tablet. 12/02/16 [Rx] Sodium Hypochlorite 0.25% [Dakin's (Half-Strength 0.25%)] 473 ml MC DAILY #1 solution 12/02/16 [Rx] Allergies/Adverse Reactions: 3 Allergy/AdvReac Type Severity Reaction Status Date / Time No Known Allergies Allergy Verified 11/29/16 14:23 General Surgery Exam Initial Vital Signs Temp Pulse Resp BP Pulse Ox 98.1 F 99 16 145/80 98 11/29/16 15:20 11/29/16 15:20 11/29/16 15:20 11/29/16 15:20 11/29/16 15:20 - General physical appearance well developed, well nourished, no distress, no pain, obese - Eyes PERRL, normal ocular movement - ENT normal mucosa, normocephalic - Neck trachea midline - Respiratory normal expansion, clear to auscultation - Cardiovascular Cardiovascular exam: Present: RRR - Abdomen Abdomen general surgery: Present: bowel sounds present, soft, non tender - Integumentary Integumentary general surgery: Present: other (bilateral lower extremity FT wounds) - Neurologic Present: CN 2-12 grossly intact - Musculoskeletal Present: normal posture - Psychiatric Psychiatric general surgery: Present: A&Ox3, speech is normal Date of admission: 11/29/16 18:17 Primary care physician: Magdalene Erickson Consults: 11/30/16 08:01 Consult to Surgery [CONS] Routine Consulting Provider: Margarita Johnston Surgical Reason for Consult: Cellulitis with left leg wound- Dr. Ramos notified Call Completed: Yes 11/30/16 12:40 Consult to Invasive Line Access Team [CONS] Routine Reason for Consult: no IV assess Line Type: EPIV PICC line indications: Limited vascular access Time Notified: 12:43 Discharging clinician: Jennifer Ramos Anticipated date of discharge: 12/02/16 - Patient Status Disposition: Home, Self-Care Condition: Good Overall status at discharge: patient is back to baseline - Discharge Instructions Follow Up With: Magdalene Erickson MD [Primary Care Provider] - Jennifer Ramos MD [Partnered Physician] - (wound care this wednesday [phone]) Additional Instructions: wash bilateral lower legs with soap and water daily apply 0.25% dakins moistened 4x4 gauze to open wounds, cover with gauze, ABD pads, wrap with kerlix and coban from above toes to below knees, change daily - Diet and Activity Activity: increase activity as tolerated Diet: advance to your usual diet - Hospital Course Hospital course: Ms. Bella is a 26 year old female with Prader-Willi syndrome, morbid obesity, chronic bilateral lower extremity venous stasis ulcers. She was brought to the hospital with cellulitis and the left lower leg infection. She was started on antibiotics and daily wound care. She was found to be anemic with a hemoglobin of 7.1. She underwent an EGD and colonoscopy with the anesthesia on admission day 2. She was found to have a normal colon, localized gastritis and a hiatal hernia. She is discharged home in stable condition. She is to follow-up with Dr. Ramos and wound care this coming Wednesday. She is to follow up with her PCP for workup of anemia. - Time Spent with Patient Total time spent providing and/or coordinating discharge services: Labs on day of discharge: Labs from last 24 hours 12/02/16 12/02/16 12/02/16 14:15 14:00 12:00 WBC 8.5 RBC 4.15 Hgb 7.3 L Hct 28.1 L MCV 67.7 L MCH 17.6 L MCHC 26.0 L RDW 23.8 H Plt Count 320 MPV 9.6 Immature Gran % 0.5 Seg Neutrophils % 68.2 Lymphocytes % 18.1 Monocytes % 7.5 Eosinophils % 5.1 Basophils % 0.6 Neutrophils # 5.8 Lymphocytes # 1.5 Monocytes # 0.6 Eosinophils # 0.4 Basophils # 0.1 Platelet Estimate Normal Polychromasia 1+ A Hypochromasia Present A Anisocytosis 2+ A Microcytosis Present A POC Glucose Urine Test Negative Stool Occult Blood Negative 12/02/16 12/01/16 12/01/16 05:22 19:37 16:12 WBC RBC Hgb Hct MCV MCH MCHC RDW Plt Count MPV Immature Gran % Seg Neutrophils % Lymphocytes % Monocytes % Eosinophils % Basophils % Neutrophils # Lymphocytes # Monocytes # Eosinophils # Basophils # Platelet Estimate Polychromasia Hypochromasia Anisocytosis Microcytosis POC Glucose 119 H 135 H 105 H Urine Test Stool Occult Blood 12/01/16 12/01/16 10:53 05:09 WBC RBC Hgb Hct MCV MCH MCHC RDW Plt Count MPV Immature Gran % Seg Neutrophils % Lymphocytes % Monocytes % Eosinophils % Basophils % Neutrophils # Lymphocytes # Monocytes # Eosinophils # Basophils # Platelet Estimate Polychromasia Hypochromasia Anisocytosis Microcytosis POC Glucose 129 H 162 H Urine Test Stool Occult Blood Preliminary micro results at discharge 11/29/16 19:42 Blood Culture - Preliminary Peripheral Venipuncture No growth.
[2016-12-02] MEDS ORDERED: Cefepime HCl 2,000 MG in D5% in Water (Mini-Bag+) 100 ML IVPB SCH (18:00)
[2016-12-02 18:02] VITALS: BP 122/81
--- NOTE | 2016-12-02 18:16 | Anesthesia Evaluation Post Op ---
Date of Encounter: 12/02/16 Time of Encounter: 17:30 - Vital Signs Vital Signs: Last Vital Signs Temp 98.2 F 12/02/16 18:02 Pulse 75 12/02/16 18:02 Resp 16 12/02/16 18:02 BP 122/81 12/02/16 18:02 Pulse Ox 100 12/02/16 18:02 - Lungs Lungs: Clear Ascult./Percussion - Airway Airway: Non-obstructed - Cardiovascular Regular Rate - Mental Status Mental Status: Alert & Oriented, Answers Appropriately - Pain Pain Scale: 1 - Nausea Vomiting Nausea Vomiting: Not Present - Hydration Hydration: NPO - Discharge PostOp Status: Transfer Patient to floor
[2016-12-02 18:46] LABS: BUN/Creatinine Ratio 10 (6-26); Blood Urea Nitrogen 7 mg/dL (7-20); Calcium 8.6 mg/dL (8.6-10.8); Carbon Dioxide 26 mEq/L (19-29); Chloride 106 mEq/L (98-109); Glucose 88 mg/dL (70-99); Osmolality,Calculated 285 (280-300); Potassium 3.6 mEq/L (3.5-4.5); Sodium 139 mEq/L (136-145); eGFR For African Americans > 60 (> 60); eGFR For Non-African Americans > 60 (> 60)
[2016-12-02 19:11] LABS: Ferritin 124 ng/ml (5-204)
== END 2016-12-02 18:39 | disposition home or self-care (01) | DRG 872 ==
LOC: EDBD → 3ANU 15:19 → EMEROO 15:19 → SUATTDRO 18:17 → 3ANU 19:00
PROVIDERS: ADMIT Internal Medicine Hematology & Oncology; ATTEND Internal Medicine
PROC: ENDOEBX (2016-12-02 17:30)